=== PATIENT | female | born 1995 | race Caucasian/White ===

== ENCOUNTER 2016-12-31 22:35 | Emergency (ER) | payer BC ==
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
[2017-01-01] MEDS ORDERED: cefTRIAXone 250 MG Vial IM ONE (00:04)
[2017-01-01] MEDS ORDERED: metroNIDAZOLE 500 MG Tab PO ONE (00:04)
[2017-01-01] MEDS ORDERED: Azithromycin 250 MG Tab PO ONE (00:05)
[2017-01-01] MEDS ORDERED: Promethazine 25 MG/ML SDV IM ONE (00:05)
[2017-01-01] MEDS ORDERED: Levonorgestrel 1.5 MG Tab PO ONE (00:06)
[2017-01-01 01:21] VITALS: BP 124/72
== END 2017-01-01 01:49 | disposition home or self-care (01) ==
LOC: LL.ED 22:35
DX: T74.21XA Adult sexual abuse, confirmed, initial encounter (principal); F41.9 Anxiety disorder, unspecified; K21.9 Gastro-esophageal reflux disease without esophagitis; Z88.2 Allergy status to sulfonamides
CPT/HCPCS: 96372; 99285; A9270; J0696